=== PATIENT | male | born 1995 | race Caucasian/White ===

== ENCOUNTER 2016-12-06 17:21 | Emergency (ER) | payer SELFPAY ==
[2016-12-06 17:31] VITALS: BMI 25.8
[2016-12-06 17:32] VITALS: BP 147/99; PULSE 86; RESP 18; TEMP 98.3; O2SAT 100
[2016-12-06 18:04] LABS: URINE BACTERIA OCC (<OCC); URINE BILIRUBIN NEGATIVE (NEGATIVE); URINE BLOOD 3+ (NEGATIVE); URINE CLARITY Clear (Clear); URINE COLOR Yellow (YELLOW); URINE GLUCOSE (UA) NORMAL (Normal); URINE LEUKOCYTE ESTERASE NEG Leu/uL (Negative); URINE NITRATE NEGATIVE (NEGATIVE); URINE PROTEIN 2+ mg/dL (NEGATIVE)
[2016-12-06] MEDS ORDERED: cefTRIAXone (Rocephin) 250 mg Inj IM STA (18:29)
--- NOTE | 2016-12-06 18:38 | C.PDOC ---
History Of Present Illness 21 y/o male presents to ED with complaints of subjective fever, dysuria and blood in urine for 4 days. Patient denies abdominal pain, n/v/d, back pain, groin or testes pain. no penile discharge. No other complaints at this time. Time Seen by Provider: 12/06/16 17:37 Chief Complaint (Nursing): Male Genitourinary History Per: Patient History/Exam Limitations: no limitations Onset/Duration Of Symptoms: Days Current Symptoms Are (Timing): Still Present Associated Symptoms: denies: Nausea, Vomiting, Diarrhea Past Medical History Reviewed: Historical Data, Nursing Documentation, Vital Signs Vital Signs: Last Vital Signs Temp 98.3 F 12/06/16 17:31 Pulse 86 12/06/16 17:31 Resp 18 12/06/16 17:31 BP 147/99 H 12/06/16 17:31 Pulse Ox 100 12/08/16 08:16 Family History: States: No Known Family Hx - Social History Hx Alcohol Use: No Hx Substance Use: No - Immunization History Hx Tetanus Toxoid Vaccination: No Hx Influenza Vaccination: No Hx Pneumococcal Vaccination: No Review Of Systems Constitutional: Positive for: Fever. Negative for: Chills Gastrointestinal: Negative for: Nausea, Vomiting, Diarrhea Genitourinary: Positive for: Dysuria, Hematuria Musculoskeletal: Negative for: Back Pain Skin: Negative for: Rash Physical Exam - Physical Exam Appears: Non-toxic, No Acute Distress Skin: Normal Color, Warm Head: Atraumatic, Normacephalic Oral Mucosa: Moist Neck: Normal ROM Cardiovascular: Rhythm Regular, No Murmur Respiratory: Normal Breath Sounds, No Rales, No Rhonchi, No Wheezing Gastrointestinal/Abdominal: Soft, No Tenderness, No Guarding, No Rebound Back: No CVA Tenderness Extremity: Normal ROM, Capillary Refill (<2 seconds) Neurological/Psych: Oriented x3 ED Course And Treatment O2 Sat by Pulse Oximetry: 100 (RA) Pulse Ox Interpretation: Normal Medical Decision Making Medical Decision Makin21 y/o male with hematuria and urinary symptoms; treated for sti and ua. Disposition Counseled Patient/Family Regarding: Diagnosis, Need For Followup - Disposition Referrals: [facility] [Outside] [facility] [Outside] Disposition: HOME/ ROUTINE Disposition Time: 19:09 Condition: STABLE Additional Instructions: Take medication as prescribed. Drink increased fluids. FOllow up in medical clinic in a few days; return to er for any worsening problems. Prescriptions: Nitrofurantoin Macrocrystals [Macrobid] 100 mg PO BID #14 cap Instructions: Urinary Tract Infection in Men (ED), Dysuria (ED) Forms: General Discharge Instructions - Clinical Impression Clinical Impression: Urinary tract infection - Scribe Statement The provider has reviewed the documentation as recorded by the Marcia Gold All medical record entries made by the Marcia were at my direction and personally dictated by me. I have reviewed the chart and agree that the record accurately reflects my personal performance of the history, physical exam, medical decision making, and the department course for this patient. I have also personally directed, reviewed, and agree with the discharge instructions and disposition.
== END 2016-12-06 19:17 | disposition home or self-care (01) ==
LOC: C.ER 17:21
DX: N39.0 Urinary tract infection, site not specified (principal); R31.9 Hematuria, unspecified
CPT/HCPCS: 81001; 87086; 87491; 87591; 96372; 99283; J0696